=== PATIENT | female | born 1975 | race Caucasian/White ===

== ENCOUNTER → 2017-05-07 13:52 | Outpatient (CLI) | payer BC, SELFPAY ==
--- NOTE | 2017-05-07 14:01 | HPBI_ITS ---
MAMMOGRAPHY - BILATERAL SCREENING REASON FOR EXAM: Female, 41 years old. Routine annual screening examination. PERTINENT HISTORY: Non-contributory. TECHNIQUE: Digital bilateral breast christiano (3D mammographic acquisition) in the CC and MLO projections. 2-D mediolateral oblique (MLO) and craniocaudad (CC) views of both breasts were obtained. CAD: Full Field Digital Mammography with Computer Added Detection was performed. COMPARISON: Comparison is made with prior examination dated February 25, 2013. FINDINGS: Breast Composition: The breasts are heterogeneously dense, which may obscure small masses. There are no dominant masses or suspicious calcifications. No other significant abnormalities are identified. There has been no significant change since the prior study. HPBI/SCREENING MAMM (CAD), BILAT IMPRESSION: Stable bilateral screening mammogram. Yearly follow-up mammogram recommended. (A) ASSESSMENT CATEGORY: BIRADS Category 1: Negative. A letter regarding these results will be sent to the patient by the facility within 30 days. Approximately 10% of breast cancers are not detected by mammography. A normal mammogram should not delay biopsy of a clinically suspicious abnormality. [id number] Electronically Signed: Wang Solo MD at 15:07 EST Tel [phone], Service support ,
== END ==
DX: Z12.31 Encounter for screening mammogram for malignant neoplasm of breast (principal)
CPT/HCPCS: 77063; 77067

== ENCOUNTER → 2017-12-29 08:50 | Outpatient (CLI) | payer BC, SELFPAY ==
[2017-12-29 10:21] LABS: Absolute Lymphocyte Count 1.35 X10^3/ul (0.83-4.51); Absolute Neutrophil Count 2.7 X10^3/uL (2.0-7.7); Basophil# 0.05 X10^3/uL; Eosinophil# 0.22 X10^3/uL; Eosinophils% 4.6 % (0-5); Hematocrit 34.9 % (37-47); Hemoglobin 11.3 g/dl (12.0-15.0); Lymphocyte # 1.35 X10^3/ul (4.0); Mean Corp Hgb Conc 32.4 g/gl (32-36); Mean Corpuscular Hgb 27.2 pg (27.0-32.0); Mean Corpuscular Volume 83.9 fL (81-99); Mean Platelet Vol. 10.1 fl (6.2-12.0); Monocyte# 0.45 X10^3/uL; Monocyte% 9.3 % (0-10); Neutrophil # 2.74 X10^3/uL (2.7-7.7); Neutrophil % 56.9 % (47-70); Platelet Count 329 K/mm3 (150-450); RBC Distribution Width SD 51.9 fl (35.1-43.9); Red Blood Count 4.16 M/mm3 (4.2-5.4); White Blood Count 4.8 K/mm3 (4.4-11.0)
[2017-12-29 10:28] LABS: Color, Urine Yellow (Yellow); Glucose, Dipstick Normal (Normal); Ketone-Dipstick 5 mg/dl (Negative); Leukocyte Esterase-Dipstick 500 /ul (Negative); Nitrite-Dipstick Negative (Negative); Occult Blood-Urine 10 /ul (Negative); POSITIVE COUNT NO; POSITIVE DIFFERENTIAL NO; POSITIVE MORPHOLOGY NO; Protein-Dipstick 15 mg/dl (Negative); Urine Bilirubin Dipstick Negative (Negative); Urine Clarity Sl. Cloudy (Clear); Urine Urobilinogen Normal (Normal); Urine pH 6.5 (5.0 - 8.0)
[2017-12-29 11:21] LABS: ALB/GLOB Ratio 1.3 RATIO (0.9-2.4); AST(SGOT) 18 U/L (15-37); Alanine Aminotransfer ALT/SGPT 31 U/L (13-56); Albumin, Serum 3.9 g/dL (3.2-5.0); Alkaline Phosphatase 85 U/L (45-117); Anion Gap 7 (5-15); BUN 8 mg/dL (7-18); BUN/Creat Ratio 11.5 RATIO (10-20); Chloride 101 mmol/L (98-107); Cholesterol 203 mg/dL (200); EST Glomerular Filtration Rate 98 mL/min (>60); Est Glom Filt Rate - Afr Amer 119 mL/min (>60); Globulin 3.1 g/dL (2.2-4.2); Glucose 74 mg/dL (74-106); High Density Lipoprotein 55 mg/dL; Sodium Level 134 mmol/L (136-145); Triglycerides 80 mg/dL; Very Low Density Lipoprotein 16 mg/dL (5-40)
== END ==
PROVIDERS: Family Provider Family Medicine; PCP Family Medicine; Referring Provider Family Medicine; Visit Provider Family Medicine
DX: Z00.00 Encounter for general adult medical examination without abnormal findings (principal); I10 Essential (primary) hypertension; D64.9 Anemia, unspecified
CPT/HCPCS: 36415; 80053; 80061; 81002; 85025

== ENCOUNTER 2019-07-27 18:33 | Emergency (ER) | payer OTHER, SELFPAY ==
[2019-07-27 18:33] VITALS: BP 129/98; PULSE 71; RESP 16; TEMP 36.4; BMI 20.9
--- NOTE | 2019-07-27 19:06 | CT_ITS ---
STUDY: CT SOFT TISSUE NECK WITH CONTRAST REASON FOR EXAM: Female, 43 years old. LT SIDED FACE AND NECK PAIN AND SWELLING,PT STARTED ANTIBIOTIC SAT. SHE NEEDS TO HAVE DENTAL SURGERY -- HX:HTN RADIATION DOSAGE (If Supplied By Facility): CTDIvol = ( 10.53 ) mGy, DLP = ( 281.41 ) mGycm TECHNIQUE: The patient was scanned in a multi-detector CT scanner. High resolution transaxial imaging was performed following intravenous administration of IV 100mL Isovue-370. Sagittal and coronal images were reconstructed. Individualized dose optimization techniques were used for this CT. COMPARISON: None. FINDINGS: There is mild soft tissue stranding overlying the left cheek and chin which is consistent with facial cellulitis. There is no fluid collection. There is no cervical lymphadenopathy. The parotid and submandibular glands are within normal limits. The paranasal sinuses and mastoid air cells are clear. The visualized intracranial structures are grossly unremarkable. There is scarring noted in the lung apices. There are no destructive osseous lesions. CT/Soft Tissue Neck WITH Contrast IMPRESSION: Left facial cellulitis. No fluid collection. Electronically Signed: Gabo Fernandez, at 20:38 EDT Tel , Service support ,
--- NOTE | 2019-07-27 19:25 | ED.VISSUMM ---
- ER Visit Summary Date of Service: 07/27/19 Chief Complaint: Left lower dental pain History of Present Illness: The patient is a 43 F with left lower dental pain and facial swelling. She states this started 4 days ago. She was started on amoxicillin 4 days ago. She has had fever at home. Denies difficulty breathing or swallowing. She was unable to get into her dentist today. She was advised by her primary care physician to come to the ED for evaluation. Physical Examination: Vitals are stable. Patient is afebrile. Alert no acute distress. HEENT exam left lower molar tenderness and decay, no surrounding fluctuance. No sublingual edema. Left mandibular swelling Neck is supple. Lungs are clear and equal bilaterally. Heart is regular rate and rhythm. Extremities are unremarkable. Skin is warm and dry. Remainder of exam is unremarkable. Emergency Department Course and Treatment: She was given clindamycin IV. CT soft tissue neck shows left facial cellulitis. No fluid collection. On reevaluation, patient is resting comfortably. She is given a prescription for clindamycin and advised to follow-up with her dentist and her primary care physician. Advised signs and symptoms for which to return to the ED. Patient is comfortable with discharge home. Advised return to ED for worsening complaints. Disposition: Discharged home Impression: Odontalgia, left facial cellulitis This note was generated with [employer] dictation software. It may contain incorrect words, spelling, and punctuation that were not noted in review of the chart prior to signing ED Disposition - Plan for ED Patient: Instructions: ED Dental Abscess with Facial Cellulitis Prescriptions: Clindamycin [Cleocin] 300 mg PO 4X/DAY #80 cap Prescription Printed Referrals: Sahil Anderson MD [Primary Care Provider] -
--- NOTE | 2019-07-27 20:52 | ED.DEP ---
ED Disposition - Plan for ED Patient: Instructions: ED Dental Abscess with Facial Cellulitis Prescriptions: Clindamycin [Cleocin] 300 mg PO 4X/DAY #80 capsule Referrals: Sahil Anderson MD [Primary Care Provider] -
== END 2019-07-27 21:04 | disposition home or self-care (01) ==
LOC: ED 19:44
PROVIDERS: Emergency Provider Emergency Medicine; PCP Family Medicine
DX: L03.211 Cellulitis of face (principal); K08.89 Other specified disorders of teeth and supporting structures
CPT/HCPCS: 70491; 96361; 96365; 99283; Q9967; A4216

== ENCOUNTER → 2019-12-02 10:37 | Outpatient (CLI) | payer OTHER, SELFPAY | LOC: MTDU 10:37 | PROVIDERS: PCP Family Medicine; Referring Provider Family Medicine; Visit Provider Family Medicine | DX: U07.1 COVID-19 (principal) | CPT/HCPCS: 87635; C9803; U0003 ==

== ENCOUNTER 2023-01-09 09:02 | Day surgery (SDC) | payer BC, SELFPAY ==
[2023-01-09] VITALS (9 sets, daily range): BP systolic 87–128; BP diastolic 56–82; PULSE 46–57; RESP 15–96; TEMP 36.3–36.8; O2SAT 97–99; BMI 22.8
[2023-01-09] MEDS: Lactated Ringers 1,000 ML 15 ML IV (09:41)
[2023-01-09] MEDS: Cefazolin 2 GM in 0.9% Normal Saline (100mL Bag) 100 ML IV (10:39)
--- NOTE | 2023-01-09 10:40 | VUL_PTH ---
PATIENT: BEVERLEY RAHMAN LOC: [facility] [place] U#:[id number] AGE/SX: 47/F ROOM: RE01/09/[address]: Dr. Marla Caal MD : 1975 BED: DIS: 01/09/2023 SPEC #: [id number] RECD: 01/09/23 12:08 STATUS: COREEN REMiladys #: [id number] ANITA: 01/09/23 10:[address]: Marla Caal DEPT: SURGICAL PATHOLOGY RECD BY: Evelyn Herrera ENTERED: 01/09/23 13:03 SP TYPE: VULVA BX OTHR DR: Dr. Sahil Anderson MD Tissues: Vulva, NOS Procedures: Special Stain Group I Surgery Specimen Level IV GMS Stain (control) HEADER OPERATION: Cysto, urethral dilatation, vulvar biopsy PRE-OP DIAGNOSIS: Urinary tract infection, vulvar atrophy TISSUE SUBMITTED: Vulvar biopsy MICROSCOPIC DIAGNOSIS Vulva, biopsy: Hyperkeratosis. Lichenoid dermal chronic inflammation. See comment. SHEELA:angella 01/10/2023 COMMENT Special stain for fungi is negative for organisms; matched control is appropriate. Clinical correlation and appropriate follow up are necessary. MICROSCOPIC DESCRIPTION Slides are reviewed. GROSS DESCRIPTION Received in fixative is one container labeled with the patient's name and designated vulvar biopsy. The specimen consists of one irregular fragment of mckeon soft tissue that measures 0.2 x 0.2 x 0.1 cm. The specimen is totally submitted in one cassette. / SHEELA:angella 01/09/2023 TC:3 CPT: 17572, 59423
[2023-01-09] MEDS: Lidocaine 1% /Epi 1:100 (20ml) 20 ML Vial (10:55)
--- NOTE | 2023-01-09 11:08 | DCINST_ITS ---
Discharge Instructions Diet Discharge Diet: No restrictions Activity Discharge Activity: Return to Normal Activity Dressing / Incision Call your doctor if your incision/area has: Continuous Slow Oozing and Foul Smelling Discharge Call your doctor if you observe: Fever of 101 or Higher, Inability to urinate and Inability to have a bowel movement Follow Up Care Please Follow Up With: Marla Caal MD When: The office will call to make follow-up arrangements for next week Test Results: Test results from this visit will be discussed in further detail at your follow- up appointment, if applicable. Discharge Plan Admission Attending Provider: Marla Caal Primary Care Provider: Sahil Anderson Discharge Orders/Prescriptions Prescriptions: New oxycodone-acetaminophen [Percocet] 5-325 mg tablet 1 tab PO Q8H PRN (Reason: pain) 2 Days Qty: 7 0RF cephalexin [cephalexin] 500 mg capsule 500 mg PO Q12 3 Days Qty: 6 0RF phenazopyridine [Pyridium] 200 mg tablet 200 mg PO TID PRN PRN (Reason: Bladder Spasms) 7 Days Qty: 30 0RF Continued armodafinil 250 mg tablet 250 mg PO QHS Patient Comments: TAKE 1 TABLET BY MOUTH EVERY DAY atenolol 25 mg tablet 25 mg PO QHS Patient Comments: TAKE 1 TABLET BY MOUTH EVERY DAY Referrals / Follow Up: Sahil Anderson MD [Primary Care Provider] - Disposition Disposition (needs filled in before D/C Order can be placed): Home, Self Care
--- NOTE | 2023-01-09 11:11 | PCM.OPRPT ---
Report of Operation Date of Procedure: 01/09/23 Pre-Operative Diagnosis: Urethral stricture, vulvar lesion, urinary tract infection Post-Operative Diagnosis: Same Surgery/Procedure Performed:: Urethral dilation, cystoscopy, vulvar biopsy Surgeon: Marla Caal Type of Anesthesia: MAC Specimen's removed: Vulvar biopsy Description of Procedure: The patient is a 47-year-old female with difficulty voiding found to have a urethral stricture on office evaluation along with the shallow ulceration of the posterior vulva. She has significant vulvar adhesions and a questionable diagnosis of lichen sclerosis. Informed consent was obtained. She was taken to the operating room and placed on the operating room table. Anesthesia monitored the head, neck, airway, IV access and vital signs throughout the case. Once anesthesia was appropriate administered, the patient was placed into dorsal lithotomy position and was prepped and draped in usual sterile fashion. The urethral meatus was so strictured down that it was difficult to pass a 12 [place] sound. I was able to obtain urine from the open ended sound and sequentially dilated her to 32 [place]. At this time the cystoscope passed easily through the urethra into the urinary bladder revealing mild trabeculation and no other mucosal abnormalities. There is no evidence of prolapse. The ureteral orifices were located in a correct anatomic position. At this time the patient's bladder was emptied and the cystoscope was removed. The posterior vulvar ulcerated area was biopsied with a 3 mm punch biopsy following infiltration with lidocaine with epinephrine. 1 suture with 4-0 chromic was placed in the biopsy site. She was then awakened and taken to the recovery room in good condition. There were no complications during this procedure. Complications None Admit VTE Documentation VTE Present on Admission: Yes VTE Mechan Device Prophylaxis: SCD's VTE Pharm Prophylaxis ordered?: No Reason prophylaxis not ordered:: Treatment Not Indicated
== END 2023-01-09 12:33 | disposition home or self-care (01) ==
LOC: SDC 09:04 → AC 09:06
PROVIDERS: PCP Family Medicine; Referring Provider Urology; Visit Provider Urology
PROC: 0T7D8ZZ Dilation of Urethra, Via Natural or Artificial Opening Endoscopic (ICD-10-PCS; CPT 52281; principal; 2023-01-09 10:30)
DX: N35.92 Unspecified urethral stricture, female (principal); N39.46 Mixed incontinence; N39.0 Urinary tract infection, site not specified; I10 Essential (primary) hypertension; N90.5 Atrophy of vulva; N90.89 Other specified noninflammatory disorders of vulva and perineum; N94.11 Superficial (introital) dyspareunia; Z90.49 Acquired absence of other specified parts of digestive tract; Z90.710 Acquired absence of both cervix and uterus; Z90.721 Acquired absence of ovaries, unilateral; F17.200 Nicotine dependence, unspecified, uncomplicated
CPT/HCPCS: 53665; 56605; 00910; 88305; 88312; J7120; J2405

== ENCOUNTER 2023-08-07 17:31 | Emergency (ER) | payer BC, SELFPAY ==
[2023-08-07 17:32] VITALS: BP 165/102; PULSE 118; RESP 18; TEMP 36.8; O2SAT 100
[2023-08-07 17:33] VITALS: BP 165/102; PULSE 118; RESP 16; TEMP 36.8; O2SAT 100
--- NOTE | 2023-08-07 17:53 | RAD_ITS ---
INDICATION: pain/poss injury EXAMINATION/TECHNIQUE: X-RAY - LEFT XR Knee 1 or 2 Views COMPARISON: None. FINDINGS: No acute fracture or malalignment. No significant degenerative changes are seen. No joint effusion. The soft tissues are unremarkable. RAD/Knee 1 or 2 Views IMPRESSION: No acute radiographic abnormalities. Electronically Signed: Jose Mendez MD at 18:41 EDT ,
--- NOTE | 2023-08-07 18:01 | EDS_ITS ---
HPI History of Present Illness Chief Complaint: Lower Extremity Injury Informant: patient and spouse/S.O. Narrative Narrative: Less than an hour prior to arrival, patient states that she was standing at home and simply reached to her left side to grab her cell phone and she had a sudden onset of pain to lateral aspect of the left knee radiating down to the foot. She had no injury otherwise, such as a fall or blunt trauma. She denies any swelling in her knee. She takes no anticoagulants. Pain is mostly lateral aspect. She has tingling down her foot. She denies any pain proximal to the knee including the back. No history of this or problems with her knees in the past. [facility] Medical History Other urethral stricture, female Wears glasses Anxiety Anemia Easy bruising Migraine headache Smoker History of edema Hypertension Home Medications ?Medication ?Instructions ?Recorded ?Last Taken ?Type armodafinil 250 mg tablet 250 mg PO QHS 01/03/23 Unknown History atenolol 25 mg tablet 25 mg PO QHS 01/03/23 Unknown History phenazopyridine 200 mg tablet 200 mg PO TID PRN PRN Bladder 01/09/23 Unknown Rx (Pyridium) Spasms 7 days #30 tabs oxycodone-acetaminophen 5 mg-325 1 tab PO Q6H PRN pain 3 days #12 08/07/23 Unknown Rx mg tablet (Percocet) tabs Allergy/AdvReac Type Severity Reaction Status Date / Time No Known Allergies Allergy Verified 08/07/23 17:32 Surgical History (Updated 01/03/23 @ 13:03 by Lucrecia Jara) Hx laparoscopic cholecystectomy Hx of foot surgery Hx of oral surgery Hx of hysterectomy Hx of unilateral oophorectomy History of Social History Smoking Status: Current every day smoker tobacco type: cigarettes ROS ROS ED Constitutional Constitutional ED: Denies chills or fever(s) Musculoskeletal Musculoskeletal: Reports extremity pain; Denies neck pain Integumentary Denies Abrasions, rash or wounds Neurologic Neurologic: Reports paresthesias LLE; Denies weakness EXAM Physical Exam Const Vital Signs: 08/07/23 17:32 08/07/23 17:33 Temperature 98.2 F 98.2 F Temperature Source Temporal Temporal Pulse Rate 118 H 118 H Respiratory Rate 18 16 Blood Pressure 165/102 H 165/102 H Blood Pressure Mean 123 123 Pulse Ox 100 100 Oxygen Delivery Method Room Air Room Air Positive well nourished and well developed General Appearance ED: well developed and NAD Neck full ROM and supple Back/Spine normal ROM and normal to inspection Back/Spine Narrative: No tenderness including SI joint and sciatic notch. Straight leg raise increases pain in the lateral left knee and all the way down the lower leg to the foot. Negative cross straight leg raise. Extremity normal to inspection Extremity Narrative: Normal inspection left lower extremity. Left dorsalis pedis pulse 2+/4, similar to the right. Brisk refill distally. All compartment soft and nondistended. She is very tender in the soft tissues just posterior to the fibular head, but no other areas of tenderness in the knee. This area is normal-appearing on the skin and there is no excessive warmth or erythema. The popliteal fossa is nontender and the rest of the knee is nontender there is no effusion. She is able to extend, it hurts worse. She can barely flex at all saying that it hurts severely to do so but she indicates that it is not just her lateral knee that hurts worse when she flexes it all the way down to her foot. Just touching the distal lower leg just above the Achilles tendon since her yelling in pain of the area on touching just barely/superficially. Neuro oriented x3, no focal motor deficits and no sensory deficits noted Neuro Narrative: DTRs are 1+ bilateral lower extremities and symmetric toes downgoing no clonus. Sensorium / Orientation: alert Psych mental status grossly normal and thought process normal Skin no wounds Rashes: no rashes MDM MDM MDM Narrative Medical decision making narrative: Obtain 2 view x-ray of the left knee it is negative for any acute bony abnormality or large effusion on my interpretation. Unknown what happened here. The patient is experiencing pain that almost sounds like a radiculopathy or peripheral neuropathy, but she does not have any pain in the low back or thigh to suggest this came from her lumbar spine. Without breaking anything in her lower leg or knee, would be unusual to have a peripheral neuropathy starting at the knee. She may need an EMG if this does not resolve on its own but for now I am giving her analgesics, prescription for analgesics, she has crutches at home I will put her in a knee immobilizer to use for comfort because she is having so much pain with any movement of the lower leg. Radiography Diagnostic Testing: Clinical Impression(s) from Imaging Studies Knee X-Ray 08/07/23 17:53 IMPRESSION: No acute radiographic abnormalities. Electronically Signed: Jose Mendez MD at 18:41 EDT , Discharge Plan Triage Chief Complaint: Lower Extremity Injury ED Provider: Jase Ladd Dx/Rx/DC Orders Clinical Impression: Neuropathic pain of left lower extremity, Left lateral knee pain Instructions: ED Knee Pain of Uncertain Cause Prescriptions: Continued armodafinil 250 mg tablet 250 mg PO QHS Patient Comments: TAKE 1 TABLET BY MOUTH EVERY DAY atenolol 25 mg tablet 25 mg PO QHS Patient Comments: TAKE 1 TABLET BY MOUTH EVERY DAY Changed oxycodone-acetaminophen [Percocet] 5-325 mg tablet 1 tab PO Q6H PRN (Reason: pain) 3 Days Qty: 12 0RF Discontinued cephalexin [cephalexin] 500 mg capsule 500 mg PO Q12 3 Days Qty: 6 0RF No Action phenazopyridine [Pyridium] 200 mg tablet 200 mg PO TID PRN PRN (Reason: Bladder Spasms) 7 Days Qty: 30 0RF Stand Alone Forms: ED Work / School Excuse Primary Care Provider: Sahil Anderson Referrals: Sahil Zafar MD [Non-Staff -Ordering Privileges] - Sahil Anderson MD [Primary Care Provider] - Sree Guillory MD [Med Staff - Active Staff] - Activity Restrictions/Additional Instructions: May follow-up with any or all of the above 3 physicians if pain persists. Print Language: Montserratian Disposition Disposition: Home, Self Care
[2023-08-07] MEDS: Ondansetron ODT 4 MG Tablet 8 MG PO (18:03)
[2023-08-07] MEDS: Morphine 4 MG/ML Syringe IM (18:04)
[2023-08-07] MEDS: Ketorolac 60 MG/2 ML Vial IM (18:07)
--- NOTE | 2023-08-07 18:11 | ED.RN ---
IM INJECTIONS PER MEDIC STUDENT
[2023-08-07 19:31] VITALS: BP 130/78; PULSE 74; RESP 18; TEMP 36.9; O2SAT 97
== END 2023-08-07 19:41 | disposition home or self-care (01) ==
PROVIDERS: Emergency Provider Emergency Medicine; PCP Family Medicine; Visit Provider Emergency Medicine
DX: G57.92 Unspecified mononeuropathy of left lower limb (principal); F17.210 Nicotine dependence, cigarettes, uncomplicated; M25.562 Pain in left knee; I10 Essential (primary) hypertension; Z79.899 Other long term (current) drug therapy; Z90.49 Acquired absence of other specified parts of digestive tract; Z90.721 Acquired absence of ovaries, unilateral; Z90.710 Acquired absence of both cervix and uterus; X50.1XXA Overexertion from prolonged static or awkward postures, initial encounter
CPT/HCPCS: 73560; 96372; 99283

== ENCOUNTER 2024-09-16 05:40 | Emergency (ER) | payer BC, SELFPAY ==
[2024-09-16 05:40] VITALS: BP 154/87; PULSE 82; RESP 16; TEMP 36.5; O2SAT 99; BMI 38.4
[2024-09-16] MEDS: Tetracaine 0.5% Ophthalmic Bottle 1 DRP RIGHT EYE (06:12)
[2024-09-16] MEDS: Fluorescein 1 MG STRIP 1 STRIP RIGHT EYE (06:12)
--- NOTE | 2024-09-16 06:47 | EX.ED.VIS.EY ---
HPI History of Present Illness Chief Complaint: Eye Problem Informant: patient and spouse/S.O. Narrative Narrative: Patient is a 49-year-old female with past medical history of hypertension. She wears glasses but denies contact lens use. She states 2 days ago she was out gardening and as she bent forward she accidentally stuck her right eye into a small stick. She states that she has had abrasions before and therefore began to use leftover Cipro eyedrops. She states she has been using those for the past 2 days but is having increasing redness swelling and pain. She denies any repeat injury since the initial trauma but as symptoms are worsening she presents for evaluation [facility] Medical History Other urethral stricture, female Wears glasses Anxiety Anemia Easy bruising Migraine headache Smoker History of edema Hypertension Home Medications ?Medication ?Instructions ?Recorded ?Last Taken ?Type atenolol 25 mg tablet 25 mg PO QHS 01/03/23 Unknown History amlodipine 10 mg tablet 10 mg PO DAILY 09/16/24 Unknown History Allergy/AdvReac Type Severity Reaction Status Date / Time No Known Allergies Allergy Verified 09/16/24 05:54 Surgical History Hx laparoscopic cholecystectomy Hx of foot surgery Hx of oral surgery Hx of hysterectomy Hx of unilateral oophorectomy History of Social History Smoking Status: Current every day smoker tobacco type: cigarettes ROS ROS ED Constitutional Constitutional ED: Denies chills or fever(s) Eyes Eyes: Reports blurry vision and other Details: Positive photophobia ENT ENT ED: Denies sore throat Cardiovascular Cardiovascular: Denies chest pain Respiratory/Chest Respiratory/Chest: Denies cough or dyspnea Gastrointestinal Gastrointestinal: Denies abdominal pain, diarrhea, nausea or vomiting Musculoskeletal Musculoskeletal: Denies myalgias Integumentary Denies rash Neurologic Neurologic: Denies headache(s) Hematologic/Lymphatic Hematologic/Lymphatic: Denies easy bleeding or easy bruising EXAM Physical Exam Const Vital Signs: 09/16/24 05:40 Temperature 97.7 F L Temperature Source Oral Pulse Rate 82 Respiratory Rate 16 Blood Pressure 154/87 H Blood Pressure Mean 109 Pulse Ox 99 Oxygen Delivery Method Room Air Positive well nourished and well developed General Appearance ED: well developed HEENT HEJABIER Narrative: Normocephalic atraumatic Eyes Eyes Narrative: Right pupil is 3 mm in size and left pupil is 5 mm. Both are reactive to light. Extraocular motions are intact The right has diffuse scleral injection with increased tearing. The upper lid was everted there is no obvious foreign body. Staining with fluorescein does show uptake of dye in multiple locations over top of the pupil consistent with corneal abrasion. Negative Kevin sign. No ulcer noted. No erythema There is the derangement in size of the pupil but no obvious pupil deformity as it is still circular in nature. Neck supple Resp normal respiratory effort and clear to auscultation bilaterally Cardio regular rate and regular rhythm Extremity normal to inspection Neuro oriented x3, CN's II-XII intact bilaterally, moves all extremities and no sensory deficits noted Sensorium / Orientation: alert Motor Exam: strength 5/5 throughout Psych mental status grossly normal Skin no rashes or lesions noted MDM MDM MDM Narrative Medical decision making narrative: Patient arrived to ER slightly hypertensive but has a past medical history of this. She reported direct trauma to the right eye 2 days ago and using old antibiotic eyedrops without symptom improved. Demential diagnosis is for corneal abrasion versus corneal ulcer versus retained corneal foreign body versus globe rupture. Physical exam shows no obvious retained foreign body and there are findings consistent with an abrasion. However because of the change/difference in pupil size I did consult ophthalmology on-call Dr. Gonzalez. He recommends that with the change in pupil size that there is concern for underlying injury and recommends that she be seen in his office early this morning. He states he can see the patient at 8 AM and it is now 7 AM. Therefore as it is only 1 hour from evaluation in the ER I do not feel there is need to hold her at this time as the patient will see the specialist at his office in the next 60 minutes. Her eye was patched in order to prevent further injury from potential rubbing. She understands that she needs to go straight from the ER to the office in order to ensure there is no signs of globe rupture/injury. Therefore at this time as the patient has follow-up with the specialist very shortly there is no need to watch her in the ER any further and she is otherwise safe for discharge. History & Record Review Discussion w/independent historian: Patient and Significant other Management Discussion w/another healthcare provider: [employer] Discharge Plan Triage Chief Complaint: Eye Problem ED Provider: Geoffrey Newell Dx/Rx/DC Orders Clinical Impression: Corneal abrasion, right, Hypertension Instructions: ED Corneal Abrasion Prescriptions: No Action atenolol 25 mg tablet 25 mg PO QHS Patient Comments: TAKE 1 TABLET BY MOUTH EVERY DAY amlodipine 10 mg tablet 10 mg PO DAILY Primary Care Provider: Sahil Anderson Referrals: Minesh Gonzalez MD [Med Staff - Active Staff] - Sahil Anderson MD [Primary Care Provider] - Activity Restrictions/Additional Instructions: Please leave the eye patch on that was placed in the ER so you do not rub the eye and create increased pressure or injury to it. Follow-up with Dr. Gonzalez at his office at 8 AM today. He will see you first and ensure that there are no signs of globe rupture. Print Language: Hebrew Disposition Disposition: Home, Self Care Discharge Date/Time: 09/16/24 07:00
[2024-09-16 06:57] VITALS: BP 151/93; PULSE 72; RESP 18; TEMP 36.8; O2SAT 99
== END 2024-09-16 07:00 | disposition home or self-care (01) ==
LOC: ED 07:10
PROVIDERS: Emergency Provider Emergency Medicine; PCP Family Medicine; Visit Provider Emergency Medicine
DX: S05.01XA Injury of conjunctiva and corneal abrasion without foreign body, right eye, initial encounter (principal); Y93.H2 Activity, gardening and landscaping; Z90.710 Acquired absence of both cervix and uterus; I10 Essential (primary) hypertension; W22.09XA Striking against other stationary object, initial encounter; Z79.899 Other long term (current) drug therapy; Z90.49 Acquired absence of other specified parts of digestive tract; Z90.721 Acquired absence of ovaries, unilateral; F17.210 Nicotine dependence, cigarettes, uncomplicated
CPT/HCPCS: 99283